=== PATIENT | male | born 1980 | race Caucasian/White ===

== ENCOUNTER → 2016-04-02 | Outpatient (REF) | payer OTHER ==
[~2016-04-02] MED LIST: AUGM875T27 PO; BACT800T5 PO; CEPH500C PO; OMEP20CA3 PO; OXYC1TAB23 PO
== END ==
LOC: M LAB REF 16:21
PROVIDERS: ATTEND Surgery
DX: T81.89XA Other complications of procedures, not elsewhere classified, initial encounter (principal)